=== PATIENT | female | born 1940 | race Caucasian/White ===

== ENCOUNTER 2020-08-02 13:27 | Emergency (ER) | payer OTHER ==
[~2020-08-02] VITALS: Ht 160 cm; Wt 65.8 kg
[2020-08-02] MEDS ORDERED: ZOLOFT25 MG PO (13:36)
[2020-08-02] MEDS ORDERED: CALTRATE 600 +1 EACH PO (13:36)
[2020-08-02] MEDS ORDERED: NABUMETONE25 GM MC (13:36)
[2020-08-02] MEDS ORDERED: IPRAT-ALBUT 0.5-3 ML IH (16:34)
[2020-08-02] MEDS ORDERED: BUDESONIDE0.5 MG/2 M IH (16:34)
[2020-08-02] MEDS ORDERED: MEDROLPACK PO (16:34)
== END 2020-08-02 16:44 | disposition home or self-care (01) ==
LOC: ER 13:27
DX: J44.1 Chronic obstructive pulmonary disease with (acute) exacerbation (principal); J06.9 Acute upper respiratory infection, unspecified; Z03.818 Encounter for observation for suspected exposure to other biological agents ruled out

== ENCOUNTER 2021-10-03 07:54 | Outpatient (CLI) | payer OTHER ==
[~2021-10-03 07:54] MED LIST: BUDESONIDE0.5 MG/2 M IH; CALTRATE 600 +1 EACH PO; IPRAT-ALBUT 0.5-3 ML IH; MEDROLPACK PO; NABUMETONE25 GM MC; ZOLOFT25 MG PO
== END 2021-10-03 07:59 | disposition home or self-care (01) ==
LOC: RX STUDY 07:54
PROVIDERS: ATTEND Internal Medicine Gastroenterology
DX: R10.9 Unspecified abdominal pain (principal)